=== PATIENT | female | born 1955 | race Caucasian/White ===

== ENCOUNTER 2018-04-07 10:00 | Outpatient (RCR) | END 2018-04-10 23:59 | LOC: NEWBEG 10:00 | PROVIDERS: ATTEND Psychiatry & Neurology Psychiatry | DX: F41.9 Anxiety disorder, unspecified (principal); F33.1 Major depressive disorder, recurrent, moderate | CPT/HCPCS: 90792; 90853; 99213 ==

== ENCOUNTER 2018-05-10 10:00 | Outpatient (RCR) | END 2018-05-11 23:59 | LOC: NEWBEG 10:00 | PROVIDERS: ATTEND Psychiatry & Neurology Psychiatry | DX: F41.9 Anxiety disorder, unspecified (principal); F33.1 Major depressive disorder, recurrent, moderate | CPT/HCPCS: 90837; 90853; 99213 ==

== ENCOUNTER 2018-06-11 10:00 | Outpatient (RCR) | END 2018-06-11 23:59 | LOC: NEWBEG 10:00 | PROVIDERS: ATTEND Psychiatry & Neurology Psychiatry | DX: F33.1 Major depressive disorder, recurrent, moderate (principal); F41.9 Anxiety disorder, unspecified | CPT/HCPCS: 90853; 99213 ==

== ENCOUNTER 2018-06-25 12:22 | Emergency (ER) ==
[2018-06-25 12:36] VITALS: BP 122/71; TEMP 96; BMI 18.6
--- NOTE | 2018-06-25 14:38 | CT ---
EXAM: CT abdomen pelvis without contrast HISTORY: Abdominal pain. Patient with history of hernia repair, weight loss surgery and right oopho rectomy. COMPARISON: None TECHNIQUE: Serial axial images of the abdomen pelvis were performed from the lung bases through the inferior pelvis without contrast. These were viewed in multiple planes. FINDINGS: There is minimal central lobular nodular ground-glass in the left lower lobe. Evaluation is limited due to lack of contrast. The liver is unremarkable. The gallbladder has been resected. The spleen is normal. The adrenal glands are normal. Left kidney demonstrates a 0.3 cm n onobstructing stone. The right kidney is normal. The adrenal glands are unremarkable. Stomach demo nstrates postsurgical changes. The pancreas is not well visualized. Evaluation of the bowel in the abdomen pelvis is limited due to lack of contrast. The colon demonstr ates multiple gas and stool distended loops which are upper limit of normal for size. Definitive obs truction is not identified. There is mild subcutaneous ground-glass consistent with mild body wall a nasarca. The urinary bladder is partially distended. The osseous structures demonstrate degenerativ e disease of the spine. Hernia repair is noted in the midline abdomen. IMPRESSION: 1. Large amount of gas and stool distended colon and small bowel. There are no dilated loops of bow el, portal venous gas or pneumatosis. Findings may represent constipation versus ileus. There is no definitive obstruction although evaluation is limited due to lack of intra-abdominal fat and partial versus early obstruction cannot be excluded. 2. Mild body wall anasarca. 3. Postsurgical changes seen throughout the abdomen and pelvis. 4. Central lobular ground-glass in the left lower lobe suggestive of small airways inflammation.
--- NOTE | 2018-06-25 14:40 | ED.PDOC ---
General ED Provider: Dr. TOVA TREVINO Chief Complaint: Abdominal Pain Stated Complaint: adminal pain/deprssion Time Seen by Physician: 12:30 (seen with [facility]ION[facility]I MOCK) Mode of Arrival: Wheelchair Information Source: Patient Exam Limitations: No limitations (PT IS C/O DIFFUSE MILD CRAMPING ABDOMINAL PAIN AND SOFT STOOLS ) Primary Care Provider: SONYA HERNADEZ Nursing and Triage Documentation Reviewed and Agree: Yes (THE PT ATTENDS NEW BEGININGS FOR EMOTIONAL SUPPORT. ) Does patient meet sepsis criteria?: No System Inflammatory Response Syndrome: Not Applicable Sepsis Protocol: For patient's 13 years and over: Temp is 96.8 and below OR 101 and greater Pulse >90 BPM Resp >20/minute Acutely Altered Mental Status Are patient's symptoms suggestive of a new infection, such as: -Pneumonia -Skin, Soft Tissue -Endocarditis -UTI -Bone, Joint Infection -Implantable Device -Acute Abdominal Infection -Wound Infection -Meningitis -Blood Stream Catheter Infection -Unknown GI Complaint Exam - Abdominal Pain Complaint/Exam Onset: Gradual (HAS HAD 2 PRIOR WEIGHT LOSS SURGEIES IN [place] ABOUT 10 YEARS AGO. PT DOESNOT FEEL LIKE EATING .PT IS PAINFULLY LONELY) Duration: THIS IS CHRONIC ISSUE , HAS NO FRIENDS WONT TAKE IN ENOUGH CALORIES , Symptoms Are: Still present Timing: Intermittent (THIS IS ONGOING PROBLEM . PT SAID SHE HAS NO INTEREST IN EATING) Initial Severity: Mild (PAIN MILD BUT DEPRESSION AND LONLINESS IS NOT A SIMPLE MATTER , PT HAS NO1 OTHER THAN TOKEN RELATIONSHIP WITH OTHERS (NO SUPPORT)) Current Severity: Mild Location of Pain: Diffuse Radiates To: Denies: Chest, Back, Flank, LLQ, RLQ, Inguinal Character: Reports: Dull Aggravating: Reports: Food Alleviating: Reports: Spontaneous resolution Associated Signs and Symptoms: Reports: Decreased appetite. Denies: Diaphoresis , Fever, Cough, Chest pain, Dizziness, Back pain, Constipation, Blood in stool, Dysuria, Urinary frequency, Decreased urine output, Vaginal bleeding, Vaginal discharge, Nausea, Vomiting, Diarrhea, Sore throat, Decreased activity Related History: Reports: Similar episode ( SAID PREVIOUSLY PT HAS NO INTEREST IN EATING, ) : 0 Para: 0 Hx Total # of Abortions (Spontaneous & Elective): 0 Review of Systems - Review Of Systems Constitutional: Reports: No symptoms Eyes: Reports: No symptoms Ears, Nose, Mouth, Throat: Reports: No symptoms Respiratory: Reports: No symptoms Cardiac: Reports: No symptoms GI: Reports: Abdominal pain : Reports: No symptoms Musculoskeletal: Reports: No symptoms Skin: Reports: No symptoms Neurological: Reports: Anxiety, Depressed, Emotional problems. Denies: Cognitive dysfunction, Headache Endocrine: Reports: No symptoms Hematologic/Lymphatic: Reports: No symptoms All Other Systems: Reviewed and Negative Past Medical History - Past Medical History Previously Healthy: Yes Endocrine: Reports: None Cardiovascular: Reports: None Respiratory: Reports: None Hematological: Reports: None Gastrointestinal: Reports: None Genitourinary: Reports: None Neuro/Psych: Reports: Anxiety, Depression (OCD ) Musculoskeletal: Reports: None Cancer: Reports: None Last Menstrual Period: NA - Surgical History General Surgical History: Reports: None, Unknown (WEIGHT LOSS SURGERY X 2 ) - Family History Family History: Reports: None - Social History Smoking Status: Never smoker Amount Smokes or Chewing Tobacco Used Daily: DOES NOT SMOKE OR ABUSE DRUGS Hx Substance Use: No Alcohol Screening: None 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 ,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 Lives: Alone (HAS ONLY 1 SISTER IN [place] WHOM BY ENLARGED UNAWRE OF THE PT'S EATING DISORDER, LONLINESS, ) Physical Exam - Physical Exam Appearance: Cachectic Ill-appearing: Mild Pain Distress: Mild Eyes: ADRIANO, EOMI, Conjunctiva clear ENT: Ears normal, Nose normal, Oropharynx normal Respiratory: Airway patent, Breath sounds clear, Breath sounds equal, Respirations nonlabored Cardiovascular: RRR, Pulses normal, No rub, No murmur GI/: Soft, Nontender, No masses, Bowel sounds normal, No Organomegaly Musculoskeletal: Normal strength, ROM intact, No edema, No calf tenderness Skin: Warm, Dry, Normal color Neurological: Sensation intact, Motor intact, Reflexes intact, Cranial nerves intact, Alert, Oriented Psychiatric: Affect appropriate, Mood appropriate Interpretation - Radiology Interpretation Radiology Interpretation By: Radiologist Radiology Results: Positive (LARGE STOOL IN THE COLON) Re-Evaluation - Re-Evaluation Time of Re-Evaluation: 14:52 (NO HOMOCIDAL, SUICIDAL IDEATION ) Status: Unchanged Vital Signs Stable: Yes Pain Level: 0 Appearance: NAD Lungs: Clear Skin: Warm and Dry Neuro: Alert and Oriented X3 CV: RRR Additional Comments: PAIN FREE . I HAD A LONG TALK WITH THE PT. NO HALLUCINATIONS NOTED . Critical Care Note - Critical Care Note Total Time (mins): 0 Course - Course Hematology/Chemistry: 06/25/18 13:25 06/25/18 13:25 Orders, Labs, Meds: Lab Review 06/25/18 06/25/18 13:25 13:25 WBC 4.69 RBC 3.08 L Hgb 9.1 L Hct 29.3 L MCV 95.1 MCH 29.5 MCHC 31.1 L RDW Coeff of Sandrine 13.4 Plt Count 166 Immature Gran % (Auto) 0.2 Neut % (Auto) 56.1 Lymph % (Auto) 31.3 [place] % (Auto) 7.7 Eos % (Auto) 4.1 Baso % (Auto) 0.6 Immature Gran # (Auto) 0.0 Neut # (Auto) 2.6 Lymph # (Auto) 1.5 [place] # (Auto) 0.4 Eos # (Auto) 0.2 Baso # (Auto) 0.0 Sodium 139.2 Potassium 4.02 Chloride 107.6 H Carbon Dioxide 26.7 Anion Gap 8.92 BUN 22.8 H Creatinine 0.96 Estimated GFR (MDRD) 59.00 BUN/Creatinine Ratio 23.75 Glucose 78.3 Calcium 8.53 Total Bilirubin 0.51 AST 38.8 H ALT 27.2 Alkaline Phosphatase 75.8 Total Protein 6.16 L Albumin 3.54 Globulin 2.62 Albumin/Globulin Ratio 1.35 Amylase 66.4 Lipase 146.1 Orders Category Date Time Status AMYLASE Stat LAB 06/25/18 13:25 Completed CBC W/ AUTO DIFF Stat LAB 06/25/18 13:25 Completed COMPREHENSIVE METABOLIC PANEL Stat LAB 06/25/18 13:25 Completed LIPASE Stat LAB 06/25/18 13:25 Completed URINALYSIS C & S IF INDICATED Stat LAB 06/25/18 13:[address] ABDOMEN/PELVIS WO CONTRAST Stat RADS 06/25/18 13:16 Taken Vital Signs: Temp Pulse Resp BP Pulse Ox 06/25/18 12:26 96.0 F L 68 18 122/71 99 Departure - Departure Time of Disposition: 16:00 Disposition: HOME SELF-CARE Discharge Problem: Abdominal pain Depression (emotion) Qualifiers: Depression Type: major depressive disorder Major depression recurrence: recurrent Active/Remission status: currently active Major depression episode severity: moderate Qualified Code(s): F33.1 - Major depressive disorder, recurrent, moderate Constipation Qualifiers: Constipation type: unspecified constipation type Qualified Code(s): K59.00 - Constipation, unspecified Instructions: Depression (ED), Anxiety (ED), Obsessive Compulsive Disorder (DC) , Constipation (ED), High Fiber Diet (ED) Condition: Good Pt referred to PMD for follow-up: Yes IPMP verified?: No Additional Instructions: Please call your Family Physician as soon as possible to schedule a follow-up appointment. WE WILL HELP YOU. IF YOU HAD ANY THOUGHTS OF HURTING YOURSELF DO NOT HESITATE TO CALL BETTER YET CALL AND COME BACK TO ED. LADIES AT [facility] WILL TRY TO CONNECT YOU WITH SUPPORT. PLEASE EAT. FOR ANY THOUGHTS CONCERS COMMENTS CALL [phone] Allergies/Adverse Reactions: Allergies ciprofloxacin [From Cipro] Adverse Reaction (Verified 06/25/18 12:44) metronidazole Adverse Reaction (Verified 06/25/18 12:44) Penicillins Adverse Reaction (Verified 06/25/18 12:44) Sulfa (Sulfonamide Antibiotics) Adverse Reaction (Verified 06/25/18 12:44) Home Medications: Ambulatory Orders Ascorbic Acid [Vitamin C] 500 mg PO QID 06/25/18 Calcium Citrate 630 mg PO TID 06/25/18 Cholecalciferol (Vitamin D3) [Vitamin D3] 5,000 unit PO DAILY 06/25/18 Clonazepam 3 mg PO BEDTIME 06/25/18 Dextroamphetamine/Amphetamine [Adderall Xr 25 mg Capsule] 50 mg PO DAILY Ferrous Fumarate 2 tab PO DAILY 06/25/18 Levothyroxine Sodium [Synthroid] 175 mcg PO DAILY 06/25/18 Loperamide HCl [Anti-Diarrheal] 1 - 4 tab PO DAILY PRN 06/25/18 Multivitamin 3 cap PO DAILY 06/25/18 [place]-3/Dha/Epa/Fish Oil [Fish Oil 1,400 mg Softgel] 1 each PO BID 06/25/18 Trazodone HCl 200 mg PO BEDTIME 06/25/18 Disposition Discussed With: Patient
== END 2018-06-25 15:20 | disposition home or self-care (01) ==
LOC: ED 12:22
DX: R10.9 Unspecified abdominal pain (principal); F33.1 Major depressive disorder, recurrent, moderate; K59.00 Constipation, unspecified; Z79.899 Other long term (current) drug therapy
CPT/HCPCS: 36415; 80053; 82150; 83690; 85025; 90853; 99213; 99283

== ENCOUNTER 2018-07-09 10:00 | Outpatient (RCR) | END 2018-07-11 23:59 | LOC: NEWBEG 10:00 | PROVIDERS: ATTEND Psychiatry & Neurology Psychiatry | DX: F33.1 Major depressive disorder, recurrent, moderate (principal); F41.9 Anxiety disorder, unspecified | CPT/HCPCS: 90853; 99213 ==

== ENCOUNTER 2018-08-09 10:00 | Outpatient (RCR) | END 2018-08-11 23:59 | LOC: NEWBEG 10:00 | PROVIDERS: ATTEND Psychiatry & Neurology Psychiatry | DX: F33.1 Major depressive disorder, recurrent, moderate (principal); F41.9 Anxiety disorder, unspecified | CPT/HCPCS: 90853; 99213 ==